=== PATIENT | male | born 1945 | race Caucasian/White ===

== ENCOUNTER 2017-10-12 11:30 | Outpatient (RCR) | payer MEDICARE, OTHER, SELFPAY ==
[2017-08-11 14:00] VITALS: BP 130/82; RESP 18; O2SAT 87; BMI 33.5
--- NOTE | 2017-08-12 09:41 | PR.IEVALNOTE ---
CR Initial Assessment Report [place] Pulmonary Rehab Inital Assessment Start: 08/11/17 09:45 Freq: Status: Active Protocol: Document 08/12/17 08:37 LILLIAM (Rec: 08/12/17 09:09 LILLIAM [id number]) [place] Exercise Assessment Dx: IPF, chronic respiratory failure with hypoxia, pulm htn Primary Language BELARUSIAN Career Services Director Required No Hearing Ability Normal Visual Impairment No Limitations Visual Difficutly None Visual Assist Glasses Assistive Devices Prosthesis Comment R arm below elbow with hook prosthesis R total knee replacement History of Falling (Immediate or No Previous) Secondary Diagnosis (More Than 2 Medical Yes Diagnoses) Ambulatory Aid None/bed rest/nurse assist IV/Heparin Lock No Gait/Transfer Normal/bedrest/immobile Mental Status Oriented to own ability Plan to Decrease Fall Risk orient patient to safety and use of [employer] equipment 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 [place] Vital Signs Pulse Oximetry (91-100 %) 87 L Nasal Cannula No: patient resists using supplemental O2 in public Respiratory Rate (12-24 breaths/min) 18 Respiratory Effort Accessory Muscle Use Respiratory Depth Normal Assessment fine crackles bilateral Left Arm Blood Pressure (90/60-120/80 mmHg) 130/82 H Blood Pressure Method Manual Cuff/Auscultation Blood Pressure Position Sitting VT Six Minute Walk Test Oxygen Delivery Method Nasal Cannula Oxygen Flow Rate (L) (L/min) 3 Respiratory Rate (breaths/min) 16 Pulse Rate (beats/min) 59 O2 Saturation by Pulse Oximetry (%) 93 Pulse Rate (beats/min) 60 Ambulation Distance (feet) 200 O2 Saturation by Pulse Oximetry (%) 89 Pulse Rate (beats/min) 72 Ambulation Distance (feet) 200 O2 Saturation by Pulse Oximetry (%) 87 Pulse Rate (beats/min) 75 Ambulatory Distance (feet) 150 O2 Saturation by Pulse Oximetry (%) 88 Pulse Rate (beats/min) 84 Ambulation Distance (feet) 200 O2 Saturation by Pulse Oximetry (%) 87 Pulse Rate (beats/min) 200 O2 Saturation by Pulse Oximetry (%) 86 PUlse Rate (beats/min) 85 Ambulation Distance (feet) 200 O2 Saturation by Pulse Oximetry (%) 86 Pulse Rate (beats/min) 56 O2 Saturation by Pulse Oximetry (%) 95 Activity Tolerance Good Distance 1150 ft Oriented to RPE Scale Yes Comment 12 Oriented to Dyspnea Scale Yes Comment 3 [place] Exercise Goals Exercise Goals able to tolerate 20 minutes continous exercise in first month increase workload as tolerated after time goal reached DASI Number and Comment 7.31 mets Short 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 Volume/Forced Vital Cap 0.57 Ratio (FEV1/FVC Ratio) Forced Expiratory Volume in 1 sec. 74% Diffusing Capacity of the Lung (DLCO) 48% History of Diabetes No Admit Height 177.8 cm Admit Weight 106 kg Admit Body Mass Index (BMI) 33.5 Additional Comment patient has weight loss goal initial discussion of diet for weight loss Weight Goal 10-12 lbs Weight Management Plan Diet portion control more vegetables less red meat Liters Per Minute at Rest 2 Liters per Minute with ADL's 3 Liters per Minute with Sleep 2 Liters per Minute with Exercise 3-4 Oxygen Intervention/Education patient is not compliant with supplemental O2 use finds potable O2 cumbersome discussed pulmonary hypertension and effect of hypoxia on heart High Energy Periods Mid-Afternoon Signs and Symptoms Activity Intolerance Dyspnea on Exertion Fatigue on Exertion Pallor [place] Education Pre-Test Score 79 Tobacco Use Former, Quit >6 Months Tobacco Product Used cigarettes Total Years Used 20 Packs Per Day 1 Environmental/Occupational Exposure asbestos exposure, hypersensitivity from bird exposure Use Yes Type mary Amount 1 Frequency occasionally Concerns None Discussed Education Requirements on Yes Intake Education Target Goals patient will complete all education topics [place] Psychosocial Initial Assess HADS Score 4 HADS Score 3 Marital Status partner Referral Needed No
--- NOTE | 2017-09-09 16:33 | PR.REVALNOTE ---
CR Initial Assessment Report [place] Education Start: 08/11/17 09:45 Freq: Status: Active Protocol: Document 08/27/17 11:58 ALISSON (Rec: 08/27/17 11:59 ALISSON [id number]) [place] Education Education discussed breathing thru nose with o2 [place] Pulmonary Rehab. Re-Assessment Start: 09/09/17 16:22 Freq: Status: Active Protocol: Document 09/09/17 16:23 LILLIAM (Rec: 09/09/17 16:33 JWS [id number]) [place] Exercise Re-Assessment Session 3 Type HUDSON METs (resistance level) 3.0 % Improvement 15% Interval Training No Shortness of Breath with Exercise Yes Session 2 Type Treadmill METs (resistance level) 2.30 % Improvement 7% Interval Training No Shortness of Breath with Exercise Yes Desaturation with Exercise see above comment Session 1 Type Nustep METs (resistance level) 2.72 % Improvement 13% Interval Training No Shortness of Breath with Exercise Yes Desaturation with Exercise Yes: I question oximetry reading as pt has poor perfusion no visible hypoxia Free Weight Yes: 6# 12r 2s Band Level Yes: #4 Intervention resistance with hand weights adapted for R prosthesis [place] Education Re-Assessment Topics Bronchial Hygiene Activities of daily living/ Leisure Activities Coping with Chronic Lung Disease [place] Psychosocial Re-Assessment Patient in Class Regularly Yes Progress Towards Goal patient attends 2x week due to distance from home Interventions Pt attending class regularly Referral Needed No
--- NOTE | 2017-10-29 15:54 | PR.DCNOTE ---
Current Diagnoses Interstitial pulmonary disease, unspecified (10/12/17) Provider Team Visit Care Team Role Provider Type Lenard Perez MD Primary Care Provider Non-Staff Specialty: Internal Medicine Address: [address] [place], [address] Email: Bhavani Brown MD Attending Provider Non-Staff Specialty: Pulmonology Address: [address] [place], [address] Email: Pulmonary Rehab Discharge Evaluation [place] Education Start: 08/11/17 09:45 Freq: Status: Active Protocol: Document 08/27/17 11:58 ALISSON (Rec: 08/27/17 11:59 ALISSON [id number]) [place] Education Education discussed breathing thru nose with o2 [place] Pulmonary Rehab. DC Assessment Start: 10/29/17 15:52 Freq: Status: Active Protocol: Document 10/29/17 15:53 LILLIAM (Rec: 10/29/17 15:54 LILLIAM [id number]) [place] Nutrition DC Assessment Patient Ready Yes Reason Not Coming to Class Regularly Other (See comment below) Other Comment Patient decided to drop out because of distance he had to travel from [facility] 2x week
== END 2017-11-09 11:31 ==
LOC: PUL 11:30
PROVIDERS: PCP Internal Medicine; Visit Provider Internal Medicine Critical Care Medicine
DX: J84.9 Interstitial pulmonary disease, unspecified (principal); J96.11 Chronic respiratory failure with hypoxia; I27.20 Pulmonary hypertension, unspecified
CPT/HCPCS: G0237; G0238; G0239; G0424

== ENCOUNTER → 2017-11-27 10:48 | Outpatient (CLI) | payer MEDICARE, OTHER, SELFPAY ==
[2017-08-11 14:00] VITALS: BMI 33.5
--- NOTE | 2017-11-30 14:25 | P.PFT.S_ITS ---
Pulmonary Function Test Referral & Results Date Patient Seen: 11/27/17 Requesting provider: Bhavani Brown Indication: Interstitial lung disease Results: The spirometry demonstrates an FVC of 2.29 L which is 54% of predicted. The FEV1 was measured at 1.72 L which is 55% of predicted. The FEV1/FVC ratio was 75 which is 102% of predicted. Following the administration of bronchodilator there was a 17% improvement in FEV1 and an 86% improvement in FEF 25-75%. Lung volumes show an SVC of 2.42 L which is 54% of predicted. The diffusing capacity was measured at 9.01 which is 29% of predicted. No hemoglobin value was provided, so no correction for potential anemia could be made, if appropriate. Interpretation: This study demonstrates moderate obstructive lung disease with some limited evidence of benefit following bronchodilator based on improvement in FEV1 and small airway flow based on improvement in FEF 25-75% There is also moderate restrictive lung disease present There is a much more significant reduction in diffusing capacity suggesting significant disease at the capillary alveolar level to the point where patient' s likely hypoxic on room air at times Compared to PFTs performed in May 2017, current spirometry shows slight reduction with FEV1 previously at 2.10 L currently 1.72 L There has been a much more significant reduction diffusing capacity which was previously at 40% predicted currently 29% of predicted. Clinical correlation suggested
== END ==
PROVIDERS: Visit Provider Internal Medicine Critical Care Medicine
DX: J84.9 Interstitial pulmonary disease, unspecified (principal)
CPT/HCPCS: 94010; 94060; 94726; 94729

== ENCOUNTER → 2018-01-25 12:57 | Outpatient (CLI) | payer MEDICARE, OTHER, SELFPAY ==
[2017-08-11 14:00] VITALS: BMI 33.5
--- NOTE | 2018-01-25 | DI.CT.S_ITS ---
PROCEDURE: CT CHEST HIGH RESOLUTION INDICATIONS: Interstitial lung disease. Short of breath TECHNIQUE: Noncontrast 1.0 and 5.0 mm thick contiguous axial sections from the pulmonary apex to the posterior costophrenic angles, with 7 mm thick coronal and sagittal MIP reformats. 1 mm thick dynamic expiratory images acquired through the upper, mid, and lower lungs. 1.0 mm thick axial sections acquired from the alden to the posterior costophrenic angles in the prone end-inspiration position. For radiation dose reduction, the following was used: automated exposure control, adjustment of mA and/or kV according to patient size. COMPARISON: [facility], CT, CHEST HIGH RESOLUTION, 09/06/2013, 11:07. FINDINGS: Image quality: Excellent. Lungs: There is redemonstration of chronic ill-defined bilateral upper and lower lobe reticulation, patchy ill-defined and groundglass opacities. No definite interval change. There is possible dense. No acute consolidation. No pleural effusion or pneumothorax. There is central bronchial wall thickening. There is also diffuse traction bronchiectasis. Mediastinum: Heart size is normal. Coronary artery calcifications are present. No pericardial effusion. Scattered calcified hilar and mediastinal lymph nodes. Thoracic aorta and central pulmonary arteries are normal in size. Esophagus is normal in caliber. Bones and chest wall: No suspicious bony lesions. No vertebral body compression fractures. Incidental cholelithiasis. There are scattered colonic diverticula. IMPRESSION: Chronic bilateral upper and lower lobe ill-defined reticulation, traction bronchiectasis and scattered ground glass opacities. Possible developing honeycomb appearance. Differential includes usual interstitial pneumonia, chronic nonspecific interstitial pneumonia, chronic hypersensitivity pneumonitis (although would be unusual given equal lower lobe predominance), and extremely rare entities such as alveolar proteinosis. Compared to prior study dated 09/06/13, the overall distribution appears similar however there is interval progression in the traction bronchiectasis, reticulation and fibrotic appearance. Dictated by: Chetan Pardo M.D. on 01/25/2018 at 15:01 Approved by: Chetan Pardo M.D. on 01/25/2018 at 15:14
== END ==
PROVIDERS: PCP Internal Medicine; Visit Provider Internal Medicine Critical Care Medicine
DX: J84.9 Interstitial pulmonary disease, unspecified (principal); R06.02 Shortness of breath; J47.9 Bronchiectasis, uncomplicated; K80.80 Other cholelithiasis without obstruction; I25.10 Atherosclerotic heart disease of native coronary artery without angina pectoris; K57.90 Diverticulosis of intestine, part unspecified, without perforation or abscess without bleeding
CPT/HCPCS: 71250

== ENCOUNTER → 2018-06-08 13:01 | Outpatient (CLI) | payer MEDICARE, OTHER, SELFPAY ==
[2017-08-11 14:00] VITALS: BMI 33.5
--- NOTE | 2018-06-08 | DI.CT.S_ITS ---
PROCEDURE: CT CHEST WO CON INDICATIONS: Interstitial pulmonary disease, unspecified TECHNIQUE: Noncontrast 5 mm thick sections acquired from the pulmonary apices to the posterior costophrenic angles. 7 mm thick coronal and sagittal MIP reformats were then acquired. For radiation dose reduction, the following was used: automated exposure control, adjustment of mA and/or kV according to patient size. COMPARISON: [facility], CT, CT CHEST HIGH RESOLUTION, 01/25/2018, 13:59. FINDINGS: Image quality: Excellent. Lungs and pleura: Overall, no definite interval change in diffuse bilateral upper and lower lobe ill-defined reticulation, traction bronchiectasis and scattered ground glass opacities. No acute consolidation. There is again suspected developing honeycombing appearance although this appears stable since 01/25/18. Mediastinum: Heart size is borderline enlarged. Coronary artery calcifications are present. No pericardial effusion. Mildly enlarged mediastinal adenopathy appears decreased since the prior study. For example prevascular lymph nodes measuring approximately 1 cm short axis, previously 1.5 cm short axis on the prior study from 01/25/18. Thoracic aorta and central pulmonary arteries are normal in size. Esophagus is normal in caliber. No hiatal hernia. Bones and chest wall: No suspicious bony lesions. No vertebral body compression fractures. No axillary or supraclavicular adenopathy by size criteria. Thyroid gland unremarkable. Abdomen: Subcentimeter hyperdense nodular appearance to the gallbladder wall at the fundus image 62 series 3. This is unchanged although cannot exclude polyp, especially given the nondependent position. IMPRESSION: Overall, stable appearance of upper and lower lobe widespread bilateral interstitial disease, differential remains unchanged as discussed on the prior study from 01/25/18. Ill-defined subcentimeter possible gallbladder polyp although cannot exclude early malignancy. Recommend continued surveillance with serial gallbladder ultrasound in 6 months. Mild mediastinal lymphadenopathy, which appears decreased since the prior study. Cardiomegaly. Coronary artery disease. Dictated by: Chetan Pardo M.D. on 06/08/2018 at 14:45 Approved by: Chetan Pardo M.D. on 06/08/2018 at 14:57
== END ==
PROVIDERS: PCP Internal Medicine; Visit Provider Internal Medicine Critical Care Medicine
DX: J84.9 Interstitial pulmonary disease, unspecified (principal); I51.7 Cardiomegaly; I25.10 Atherosclerotic heart disease of native coronary artery without angina pectoris; R59.0 Localized enlarged lymph nodes
CPT/HCPCS: 71250

== ENCOUNTER → 2018-08-26 06:29 | Outpatient (CLI) | payer MEDICARE, OTHER, SELFPAY ==
[2017-08-11 14:00] VITALS: BMI 33.5
--- NOTE | 2018-08-26 | DI.ECHO.S_ITS ---
[facility]---------+ [facility] +---------+ : : [address] [place] : : : : [id number] : : : : Phone: [phone]+ Echocardiogram Report + + :Name: BRITTA JAMES Study Date: 08/26/2018 Height: 69 in : :[facility] Exam Location: [facility] Weight: 220 lb : : Gender: Male BSA: 2.2 m2 : :: 1945 Age: 72 yrs BP: 122/64 mmHg: :Reason For Study: PULMONARY HTN : : Performed By: Srinivasa Paz : :Referring: JAMIE VERDUGO : + + Interpretation Summary The right ventricular systolic pressure is estimated to be at least 81 mmHg based on an estimated right atrial pressure of 8 mm Hg. The right ventricle is mildly dilated. The right ventricular systolic function is normal. Flattened septum is consistent with RV pressure overload. The left ventricular ejection fraction is normal. Diastolic parameters suggest a relaxation abnormality of the left ventricle, consistent with probable normal filling pressures. -Incidentally noted is increased aortic valve and LVOT velocities with a relatively high stroke volume (130 ml). This can be seen in high cardiac output states including anemia, hyperthyroidism or presence of shunt. Clinical correlation is recommended. -PASP has increased from 70 mmHg on prior study to 81 mmHg with septal shift. -No other significant change. Procedure: A two-dimensional transthoracic echocardiogram with color flow and Doppler was performed. The study quality was technically adequate. Comparison is made with the echocardiogram of 06/18/17. The patient was in normal sinus rhythm during the exam. Left Ventricle: The left ventricle is normal in size. There is normal left ventricular wall thickness. The ejection fraction is estimated to be 60-65%. The left ventricular ejection fraction is normal. There are no obvious focal wall motion abnormalities noted but poor endocardial definition reduces the sensitivity for the detection of such. Flattened septum is consistent with RV pressure overload. Diastolic parameters suggest a relaxation abnormality of the left ventricle, consistent with probable normal filling pressures. Right Ventricle: The right ventricle is mildly dilated. The right ventricular systolic function is normal. Atria: The left atrium is mildly dilated. The right atrium is moderately dilated. This is unchanged compared to the previous study. Not well- visualized. Mitral Valve: The mitral valve is normal in structure and function. There is trace mitral regurgitation. Aortic Valve: There is mild aortic valve sclerosis. The aortic valve is trileaflet. The aortic valve opens well. There is no aortic valve stenosis. No aortic regurgitation is present. Tricuspid Valve: The tricuspid valve is normal in structure and function. There is mild tricuspid regurgitation. The right ventricular systolic pressure is estimated to be at least 81 mmHg based on an estimated right atrial pressure of 8 mm Hg. Pulmonic Valve: The pulmonic valve is not well seen, but is grossly normal. There is trace pulmonic regurgitation. Great Vessels: The aortic root is normal size. The ascending aorta is moderately enlarged. The ascending aorta diameter is 4.6 cm. The pulmonary artery is normal size. The IVC is dilated (diameter is greater than 2.1 cm) yet it collapses greater than 50% with a sniff. This suggests a right atrial pressure of 8 mm Hg. Pericardium/ Pleura There is no pericardial effusion. There is no pleural effusion. MMode/2D Measurements & Calculations LVIDd: 5.9 cm LVOT diam: 2.2 cm LVIDs: 4.0 cm Ao root diam: 4.1 cm FS: 33.3 % Aortic Jxn: 3.1 cm EPSS: 0.87 cm asc Aorta Diam: 4.6 cm IVSd: 1.0 cm Ao Arch Diam (Prox Trans): 2.4 cm LVPWd: 1.0 cm LV bailey. diameter/BSA (cm/m^2): 2.8 LV sys. diameter/BSA (cm/m^2): 1.8 LA dimension: 4.2 cm RA long axis: 6.5 cm LA A2 area: 28.5 cm2 RA area: 27.1 cm2 LA A4 area: 32.5 cm2 RA vol: 96.3 ml LA length (vol): 7.6 cm RA : 44.8 ml/m2 LA vol: 103.0 ml IVC diam: 2.2 cm LA vol index: 47.9 ml/m2 RVD1 (basal): 4.7 cm RVD2 (mid): 4.1 cm Doppler Measurements & Calculations Ao V2 max: 208.5 cm/sec LVOT Max Royal: 126.7 cm/sec Ao V2 mean: 149.5 cm/sec LV V1 max P.4 mmHg Ao max P.4 mmHg LV V1 VTI: 34.7 cm Ao mean P.8 mmHg IZABELLA(I,D): 2.8 cm2 Ao V2 VTI: 48.6 cm IZABELLA(V,D): 2.4 cm2 sev ratio: 0.71 IZABELLA indexed to BSA (cm^2/m^2): 1.3 MV E max royal: 80.0 cm/sec TR max royal: 425.7 cm/sec MV A max royal: 108.1 cm/sec TR max P.5 mmHg MV E/A: 0.74 PA V2 max: 86.8 cm/sec Med Peak E' Royal: 5.4 cm/sec PA V2 mean: 60.9 cm/sec E/E' med: 14.9 PA mean P.6 mmHg Lat Peak E' Royal: 9.4 cm/sec PA pr(Accel): 64.0 mmHg E/E' lat: 8.5 PA Accel Time: 0.02 sec E/e' average: 11.7 MV dec time: 0.21 sec SV(LVOT): 137.8 ml Electronically signed by: Shaheed Christopher M.D. on Reading Physician:08/26/2018 02:49 PM
== END ==
PROVIDERS: Family Provider Internal Medicine Cardiovascular Disease; PCP Internal Medicine; Visit Provider Internal Medicine Critical Care Medicine
DX: I07.1 Rheumatic tricuspid insufficiency (principal); I27.20 Pulmonary hypertension, unspecified; I77.89 Other specified disorders of arteries and arterioles
CPT/HCPCS: 93306

== ENCOUNTER → 2018-10-07 12:02 | Outpatient (CLI) | payer MEDICARE, OTHER, SELFPAY ==
[2017-08-11 14:00] VITALS: BMI 33.5
--- NOTE | 2018-10-07 12:46 | DI.CT.S_ITS ---
PROCEDURE: CT CHEST HIGH RESOLUTION INDICATIONS: INTERSTITIAL LUNG DISEASE TECHNIQUE: Noncontrast 1.0 and 5.0 mm thick contiguous axial sections from the pulmonary apex to the posterior costophrenic angles, with 7 mm thick coronal and sagittal MIP reformats. 1 mm thick dynamic expiratory images acquired through the upper, mid, and lower lungs. 1.0 mm thick axial sections acquired from the alden to the posterior costophrenic angles in the prone end-inspiration position. For radiation dose reduction, the following was used: automated exposure control, adjustment of mA and/or kV according to patient size. COMPARISON: [facility], CT, CT CHEST WO CON, 06/08/2018, 13:14. [facility], CT, PE STUDY (CTA CHEST), 04/22/2016, 15:34. [facility], CT, THORAX WITHOUT CONTRAST, 01/09/2017, 12:10. [facility], CT, CT CHEST HIGH RESOLUTION, 01/25/2018, 13:59. FINDINGS: Image quality: Excellent. Lungs: Overall, no definite interval change in widespread bilateral ill-defined reticular and groundglass opacities with diffuse honeycombing appearance since 01/25/18. No acute consolidation. Central airways appear grossly patent. No pleural effusion or pneumothorax. Traction bronchiectasis as before Mediastinum: Heart size is normal. No pericardial effusion. Thoracic aorta and central pulmonary arteries are normal in size. Esophagus is normal in caliber. Bones and chest wall: No suspicious bony lesions. No vertebral body compression fractures. Abdomen: Visualized upper abdominal solid organs and bowel loops appear normal. IMPRESSION: Overall, stable examination since 06/08/18; redemonstration of the diffuse, upper and lower lobe pulmonary fibrosis, with honeycombing appearance. No definite interval progression or acute consolidation. Dictated by: Chetan Pardo M.D. on 10/07/2018 at 15:58 Approved by: Chetan Pardo M.D. on 10/07/2018 at 16:04
== END ==
PROVIDERS: PCP Internal Medicine; Visit Provider Internal Medicine Critical Care Medicine
DX: J84.9 Interstitial pulmonary disease, unspecified (principal)
CPT/HCPCS: 71250

== ENCOUNTER → 2019-03-07 13:29 | Outpatient (CLI) | payer MEDICARE, OTHER, SELFPAY ==
[2017-08-11 14:00] VITALS: BMI 33.5
--- NOTE | 2019-03-07 | DI.CT.S_ITS ---
PROCEDURE: CT CHEST HIGH RESOLUTION INDICATIONS: Interstitial pulmonary disease, unspecified TECHNIQUE: Noncontrast 1.0 and 5.0 mm thick contiguous axial sections from the pulmonary apex to the posterior costophrenic angles, with 7 mm thick coronal and sagittal MIP reformats. 1 mm thick dynamic expiratory images acquired through the upper, mid, and lower lungs. 1.0 mm thick axial sections acquired from the alden to the posterior costophrenic angles in the prone end-inspiration position. For radiation dose reduction, the following was used: automated exposure control, adjustment of mA and/or kV according to patient size. COMPARISON: [facility], CR, XR CHEST 1 VIEW, 08/30/2018, 14:17. [facility], CT, CT CHEST WO CON, 06/08/2018, 13:14. [facility], CR, CHEST 2 VIEW, 06/18/2017, 12:23. [facility], CR, XR CHEST 2 VIEWS, 08/31/2018, 5:37. [facility], CT, CT CHEST HIGH RESOLUTION, 10/07/2018, 12:14. [facility], CT, CT CHEST HIGH RESOLUTION, 01/25/2018, 13:59. FINDINGS: Image quality: Excellent. Lungs: There is a stable appearance of the pattern of chronic fibrotic change involving the lungs bilaterally, including the upper, mid and lower lung parenchyma. A pattern of superimposed alveolitis is not found, indicating likelihood of a chronic phase of interstitial lung disease, rather than superimposed chronic and acute. Mild traction bronchiectasis is seen in the areas of maximal fibrotic change, stable over time. Through the lung parenchyma no mass lesion or evidence of active Pleura: No pleural effusions or pneumothorax. Mediastinum: Heart size is normal. No pericardial effusion. Thoracic aorta and central pulmonary arteries are normal in size. Esophagus is normal in caliber. Bones and chest wall: No suspicious bony lesions. No vertebral body compression fractures. Abdomen: Visualized upper abdominal solid organs and bowel loops appear normal. IMPRESSION: Stable moderately severe pulmonary fibrosis, with reference to multiple prior CT scans from 2017 forward. No sign of superimposed acute alveolitis. Dictated by: Jeremías Gaona M.D. on 03/07/2019 at 13:59 Approved by: Jeremías Gaona M.D. on 03/07/2019 at 14:09
== END ==
PROVIDERS: PCP Internal Medicine; Visit Provider Internal Medicine Critical Care Medicine
DX: J84.10 Pulmonary fibrosis, unspecified (principal)
CPT/HCPCS: 71250